=== PATIENT | female | born 1970 | race Caucasian/White ===

== ENCOUNTER 2022-02-20 14:00 | Inpatient (IN) | payer MEDICARE, MEDICAID, SELFPAY ==
[2022-02-20 14:09] VITALS: BP 128/83; PULSE 75; RESP 18; TEMP 36.6; O2SAT 94; BMI 60.4
[2022-02-20 15:57] VITALS: BMI 59.3
[2022-02-20] MEDS: spironolactone 25 mg Tablet PO (17:57)
[2022-02-20] MEDS: quetiapine 100 mg Tablet 200 MG PO (20:22)
[2022-02-20] MEDS: gabapentin 300 mg Capsule PO (20:22)
[2022-02-20] MEDS: metformin 500 mg Tablet PO (20:22)
[2022-02-20] MEDS: trazodone 150 mg Tablet 300 MG PO (20:22)
[2022-02-20 20:34] VITALS: BP 136/79; PULSE 84; RESP 20; TEMP 36.3; O2SAT 94
[2022-02-21] MEDS: acetaminophen 325 mg Tablet 650 MG PO (04:53)
[2022-02-21 06:00] VITALS: BP 156/77; PULSE 72; RESP 20; TEMP 36.6; O2SAT 95
[2022-02-21] MEDS: lisinopril 20 mg Tablet PO (08:38)
[2022-02-21] MEDS: spironolactone 25 mg Tablet PO (08:38)
[2022-02-21] MEDS: hydroCHLOROthiazide 25 mg Tablet PO (08:38)
[2022-02-21] MEDS: gabapentin 300 mg Capsule PO ×3 (08:39→19:51)
[2022-02-21] MEDS: metformin 500 mg Tablet PO ×3 (08:39→19:51)
[2022-02-21] MEDS: acyclovir 400 mg Tablet PO ×3 (08:39→19:51)
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
[2022-02-21] MEDS: OLANZapine 5 mg ODT PO (12:45)
[2022-02-21 13:23] VITALS: BP 156/77; PULSE 72; RESP 20; TEMP 36.6; O2SAT 95
[2022-02-21 13:42] VITALS: BP 103/66; PULSE 73; RESP 16; TEMP 36.3; O2SAT 96
--- NOTE | 2022-02-21 18:55 | PC.NURSE ---
Pt refused Aldactone medication, Pt stated that she didn't what to wet the bed. Pt stated that the med was for diabetes, Nurse educated pt about the med and pt still refused.
[2022-02-21] MEDS: quetiapine 100 mg Tablet 200 MG PO (19:51)
[2022-02-21] MEDS: trazodone 150 mg Tablet 300 MG PO (19:52)
[2022-02-21 19:54] VITALS: BP 119/70; PULSE 68; RESP 16; TEMP 36.6; O2SAT 96
[2022-02-21 20:38] VITALS: PULSE 68; RESP 16; O2SAT 96
[2022-02-21 21:48] VITALS: BP 119/70; PULSE 68; RESP 16; TEMP 36.6; O2SAT 96
[2022-02-22] MEDS: acetaminophen 325 mg Tablet 650 MG PO (02:49)
[2022-02-22 06:00] VITALS: BP 130/82; PULSE 90; RESP 16; TEMP 36.9; O2SAT 91
[2022-02-22 08:00] VITALS: PULSE 69; RESP 17; O2SAT 95
[2022-02-22] MEDS: spironolactone 25 mg Tablet PO ×2 (09:09→20:27)
[2022-02-22] MEDS: acyclovir 400 mg Tablet PO ×3 (09:09→20:24)
[2022-02-22] MEDS: lisinopril 20 mg Tablet PO (09:09)
[2022-02-22] MEDS: metformin 500 mg Tablet PO ×3 (09:09→20:23)
[2022-02-22] MEDS: hydroCHLOROthiazide 25 mg Tablet PO (09:09)
[2022-02-22] MEDS: gabapentin 300 mg Capsule PO ×3 (09:09→20:23)
[2022-02-22 14:00] VITALS: BP 119/74; PULSE 69; RESP 18; TEMP 36.5; O2SAT 96
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
[2022-02-22] MEDS: quetiapine 100 mg Tablet 200 MG PO (20:23)
[2022-02-22] MEDS: trazodone 150 mg Tablet 300 MG PO (20:23)
[2022-02-22 21:28] VITALS: BP 105/67; PULSE 69; RESP 17; TEMP 36.4; O2SAT 94
[2022-02-23] MEDS: acetaminophen 325 mg Tablet 650 MG PO (05:36)
[2022-02-23 06:00] VITALS: BP 129/83; PULSE 75; RESP 18; TEMP 36.5; O2SAT 93
[2022-02-23 07:33] VITALS: BP 129/83; PULSE 75; RESP 18; TEMP 36.5; O2SAT 93
[2022-02-23] MEDS: hydroCHLOROthiazide 25 mg Tablet PO (07:51)
[2022-02-23] MEDS: lisinopril 20 mg Tablet PO (07:51)
[2022-02-23] MEDS: spironolactone 25 mg Tablet PO (07:51)
[2022-02-23] MEDS: metformin 500 mg Tablet PO (07:51)
[2022-02-23] MEDS: acyclovir 400 mg Tablet PO (07:52)
[2022-02-23] MEDS: gabapentin 300 mg Capsule PO (07:52)
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
== END 2022-02-23 07:55 | disposition home or self-care (01) | DRG 897 ==
PROVIDERS: Admitting Provider Psychiatry & Neurology Psychiatry; Visit Provider Psychiatry & Neurology Psychiatry
DX: F15.23 Other stimulant dependence with withdrawal (principal); R45.851 Suicidal ideations; Z68.43 Body mass index [BMI] 50.0-59.9, adult; F32.A Depression, unspecified; Z91.51 Personal history of suicidal behavior; F17.210 Nicotine dependence, cigarettes, uncomplicated; E66.01 Morbid (severe) obesity due to excess calories; F43.10 Post-traumatic stress disorder, unspecified; F41.9 Anxiety disorder, unspecified; Z81.8 Family history of other mental and behavioral disorders
CPT/HCPCS: 97150; 97165; J8499